=== PATIENT | male | born 1950 | race Caucasian/White ===

== ENCOUNTER 2017-03-20 12:36 | Emergency (ER) | payer BC, MEDICARE ==
[~2017-03-20 12:36] MED LIST: COUMADIN5 M2 PO; COUMADIN7.5 M1 PO; FERROUS SULFAT324 MG PO; MULTIVITAMINS1 EAC5 PO; VITAMIN C500 M3 PO; VITAMIN D-32000 UNI3 PO; ZITHROMAX250 M1 PO
[2017-03-20 13:00] LABS: BASO % 0.9 % (0-2); EOS % 3.3 % (0-7); EOSINOPHIL ABSOLUTE COUNT 0.1 tho/cmm (0.0-0.7); HCT-HEMATOCRIT 39.6 % (36.0-53.5); HGB-HEMOGLOBIN 14.2 gm/dl (13.5-17.0); IMMATURE GRANULOCYTES ABSOLUTE 0.01 tho/cmm (0-0.03); IMMATURE GRANULOCYTES PERCENT 0.2 % (0-0.3); LYMPH ABSOLUTE COUNT 1.3 tho/cmm (0.8-4.5); MCHC MEAN CORPUSCULAR HGB CONC 35.9 % (32.0-36.0); MCV (MEAN CELL VOLUME) 92.1 fl (82.0-96.0); MEAN PLATELET VOLUME 9.8 cmc (9.4-12.4); MONO % 11.8 % (0-12); MONOCYTE ABSOLUTE COUNT 0.5 tho/cmm (0.0-1.2); NEUTROPHIL ABSOLUTE COUNT 2.2 tho/cmm (1.6-8.0); NEUTROPHIL-AUTOMATED 2.2 tho/cmm (1.6-8.0); NEUTROPHILS % 52.8 % (40-80); PLATELET COUNT 100 tho/cmm (150-450); RED CELL DISTRIBUTION WIDTH 12.6 % (12.4-16.4); WHITE BLOOD COUNT 4.2 tho/cmm (4.0-10.0)
[2017-03-20 13:06] LABS: INR 2.1 INR (0.9-1.1); PROTHROMBIN TIME 24.7 SECONDS (9.0-13.6)
[2017-03-20 13:14] LABS: ANION GAP 9 mmol/L (0-20); BLOOD UREA NITROGEN 14 mg/dl (6-24); CALCIUM 8.7 mg/dl (8.5-10.5); CARBON DIOXIDE-VENOUS 29 mmol/L (22-32); CHLORIDE 108 mmol/l (96-110); CREATININE 0.82 mg/dl (0.60-1.30); GLUCOSE 132 mg/dL (70-110); POTASSIUM 4.2 mmol/L (3.7-5.1); SODIUM 142 mmol/L (135-145); eGFR VALUE FOR BLACK >90 mL/Min
[2017-03-20 13:18] LABS: URINE LEUKOCYTE ESTERASE POSITIVE (NEG); URINE PROTEIN MODERATE (NEG); URINE SPECIFIC GRAVITY 1.025 (1.003-1.030)
[2017-03-20 13:20] LABS: URINE APPEARANCE HAZY; URINE BILIRUBIN NEGATIVE (NEG); URINE BLOOD LARGE (NEG); URINE COLOR DARK YELLOW; URINE GLUCOSE (UA) SMALL (NEG); URINE KETONE NEGATIVE (NEG); URINE NITRITE NEGATIVE (NEG)
[2017-03-20 13:42] LABS: URINE RBC 150-200 /[HPF] (0-5)
[2017-03-20 13:44] LABS: URINE WBC 0-1 /[HPF] (0-5)
[2017-03-20] MEDS ORDERED: FEROSUL325 M1 PO (13:52)
[2017-03-20] MEDS ORDERED: ZYRTEC10 M7 PO (13:52)
[2017-03-20] MEDS ORDERED: CALCIUM CITRAT1 EAC5 PO (13:52)
[2017-03-20] MEDS ORDERED: MAGNESIUM OXID420 M1 PO (13:55)
[2017-03-20] MEDS ORDERED: NORCO 5-325 TA1 EACH PO (14:30)
[2017-03-20] MEDS ORDERED: ZOFRAN ODT4 MG PO (14:30)
== END 2017-03-20 15:22 ==
LOC: EDMED 12:36
PROVIDERS: Emergency Medicine
DX: N20.0 Calculus of kidney (principal); K74.60 Unspecified cirrhosis of liver; I48.91 Unspecified atrial fibrillation; Z87.442 Personal history of urinary calculi; Z79.01 Long term (current) use of anticoagulants; Z79.899 Other long term (current) drug therapy
CPT/HCPCS: J1170; J2405; J7030